=== PATIENT | female | born 1965 | race Caucasian/White ===

== ENCOUNTER 2016-07-04 19:02 | Observation (INO) | payer BC ==
[~2016-07-04] VITALS: Ht 177.8 cm; Wt 73.3 kg
[2016-07-04] MEDS ORDERED: ASPIRIN 81 MG CHEW TAB ONE (19:33)
[2016-07-04] MEDS ORDERED: ALU/MAG/SIM 30 ML UDC ONE (21:08)
[2016-07-04] MEDS ORDERED: LIDOCAINE 2% VISC 15 ML UDC ONE (21:08)
[2016-07-04] MEDS ORDERED: FAMOTIDINE 20 MG INJ ONE (21:09)
[2016-07-04] MEDS ORDERED: ONDANSETRON 4 MG VIAL ONE (21:09)
[2016-07-05] MEDS ORDERED: LORAZEPAM 0.5 MG TAB PO PRN (01:35)
[2016-07-05] MEDS ORDERED: MORPHINE 2 MG/ML SYR IV PRN (01:35)
[2016-07-05] MEDS ORDERED: NITROGLYCERIN 50 MG/250 ML IV PRN (01:35)
[2016-07-05] MEDS ORDERED: SODIUM CHLORIDE 0.9% FLUSH BAG 500 ML IV PRN (01:35)
[2016-07-05] MEDS ORDERED: SALINE FLUSH 10 ML FLUSH PRN (01:35)
[2016-07-05] MEDS ORDERED: TEMAZEPAM 15 MG CAP PO PRN (01:35)
[2016-07-05] MEDS ORDERED: TRAMADOL 50 MG TAB PO PRN (01:35)
[2016-07-05] MEDS ORDERED: ACETAMINOPHEN 325 MG TAB PO PRN (01:35)
[2016-07-05] MEDS ORDERED: NITROGLYCERIN SL 0.4 MG TAB SL PRN (01:35)
[2016-07-05] MEDS ORDERED: ONDANSETRON 4 MG VIAL IV PRN (01:35)
[2016-07-05] MEDS ORDERED: DOCUSATE SOD 100 MG CAP PO PRN (01:35)
[2016-07-05 02:38] VITALS: BP_SYST 113; BP_SYST 115; RESP 16; TEMP 97.7
[2016-07-05 02:40] VITALS: Ht 177.8 cm; Wt 73.3 kg
[2016-07-05 03:01] VITALS: RESP 16
[2016-07-05 07:36] VITALS: BP_SYST 106; RESP 14; TEMP 97.5
[2016-07-05] MEDS ORDERED: SALINE FLUSH 10 ML FLUSH SCH (08:00)
[2016-07-05] MEDS ORDERED: ASPIRIN EC 81 MG TAB PO SCH (08:00)
[2016-07-05] MEDS: DICLOFENAC 25 MG TAB PO SCH ×2 (08:02→08:06)
[2016-07-05] MEDS ORDERED: GABAPENTIN 300 MG CAP PO SCH (09:00)
[2016-07-05 11:14] VITALS: BP_SYST 108; RESP 14; TEMP 97.9
[2016-07-05 15:25] VITALS: BP_SYST 116; RESP 16; TEMP 98.1
[2016-07-05 17:50] VITALS: BP_SYST 116; RESP 16; TEMP 98.1
== END 2016-07-05 17:00 | disposition home or self-care (01) ==
LOC: ENRESERVTM → ENRESERVDT → ER 19:02 → EMR 19:03 → ENPENDDIS 19:03 → PCU 07-05 02:20
PROVIDERS: ADMIT Internal Medicine Cardiovascular Disease; ATTEND Internal Medicine Cardiovascular Disease
DX: R07.9 Chest pain, unspecified (principal); I45.6 Pre-excitation syndrome; M19.90 Unspecified osteoarthritis, unspecified site
CPT/HCPCS: 36415; 71010; 80053; 82550; 82553; 83690; 83735; 84484; 85025; 85379; 85610; 85730; 93005; 93306; 94799; 96374; 96375